=== PATIENT | male | born 1965 | race Caucasian/White ===

== ENCOUNTER 2017-12-27 13:06 | Emergency (ER) | payer MEDICAID, OTHER ==
[~2017-12-27] VITALS: Ht 188 cm; Wt 96.2 kg
[2017-12-27] MEDS ORDERED: fentaNYL INJECTION 100 MCG/2 ML AMP IVP ONE (13:45)
[2017-12-27 13:52] LABS: BILIRUBIN,URINE NEGATIVE (NEGATIVE); CLARITY,URINE CLEAR; COLOR,URINE YELLOW; GLUCOSE, URINE (UA) NEGATIVE (NEGATIVE); KETONES,URINE NEGATIVE (NEGATIVE); LEUKOCYTE ESTERASE ,URINE 1+ (NEGATIVE); NITRITE,URINE NEGATIVE (NEGATIVE); PH,URINE 7 (5-9); PROTEIN,URINE 3+ (NEGATIVE); UROBILINOGEN,URINE NORMAL (NORMAL)
[2017-12-27 13:58] LABS: BACTERIA,URINE TRACE /HPF
[2017-12-27 14:14] LABS: BASOPHILS % (AUTO) 0 % (0-10); EOSINOPHILS # (AUTO) 0.2 10^3/uL (0.0-0.3); EOSINOPHILS % (AUTO) 2 % (0-10); HEMATOCRIT 50 % (40-54); HEMOGLOBIN 17.8 G/DL (13.3-17.7); LYMPHOCYTES # (AUTO) 2.7 X 10^3 (1.0-4.0); LYMPHOCYTES % (AUTO) 26 % (12-44); MEAN CORPUSCULAR HEMOGLOBIN 31 PG (25-34); MEAN CORPUSCULAR HGB CONC 36 G/DL (32-36); MEAN CORPUSCULAR VOLUME 88 FL (80-99); MEAN PLATELET VOLUME 9.2 FL (7.4-10.4); MONOCYTES # (AUTO) 1.2 X 10^3 (0.0-1.0); MONOCYTES % (AUTO) 11 % (0-12); NEUTROPHILS # (AUTO) 6.1 X 10^3 (1.8-7.8); NEUTROPHILS % (AUTO) 60 % (42-75); PLATELET COUNT 318 10^3/uL (130-400); RED BLOOD COUNT 5.69 10^6/uL (4.35-5.85); RED CELL DISTRIBUTION WIDTH 14.7 % (10.0-14.5); WHITE BLOOD COUNT 10.2 10^3/uL (4.3-11.0)
--- NOTE | 2017-12-27 14:15 | Diagnostic Imaging Report ---
PROCEDURE: CT abdomen and pelvis without contrast. TECHNIQUE: Multiple contiguous axial images were obtained through the abdomen and pelvis without the use of intravenous contrast. INDICATION: Right groin pain. There are no prior studies available for comparison. FINDINGS: By history, the patient has a diagnosis of renal cell carcinoma. There are surgical clips in the right renal fossa. There is no sign of a mass in this area to suggest recurrent neoplasm. The appendix was visualized and is not abnormally thickened. There is no sign of acute appendicitis. There are a few diverticula in the sigmoid colon but there is no evidence for acute diverticulitis. The mesenteric fat in the pelvis on the right is somewhat asymmetrical. There is no clear evidence for a lipoma in this area but that possibility should be considered. There is no irregular stranding within the fat to suggest a liposarcoma. The urinary bladder seems slightly shifted to the left. The urinary bladder is otherwise unremarkable. There do appear to be surgical sutures along the posterior aspect of the left kidney. This may be related to a prior partial resection of the left kidney. Correlation with the patient's surgical history would be recommended. There is no evidence for obstruction of left collecting system and there is no sign of a mass arising from the left kidney. The adrenals, the liver, the spleen, the pancreas, the gallbladder, the aorta and inferior vena cava show no sign acute abnormality. The stomach is partially filled with fluid and consequently difficult to assess. There may be a small hiatal hernia. The lung bases are clear. The bone windows show no sign acute of an bony abnormality. There is a mild compression deformity of the superior endplate of L1. This appears to be long-standing in nature. There has been a prior laminectomy from L2-L3 through L5-S1. IMPRESSION: 1. There are postsurgical changes consistent with prior right nephrectomy. There is no sign of a mass in this area to suggest recurrent neoplasm. 2. There is no acute abnormality of the abdomen or pelvis identified. In particular, there is no sign of acute appendicitis or diverticulitis. 3. The asymmetric appearance of the mesenteric fat in the right pelvis is of uncertain etiology. Considerations as above. 4. These results were discussed with Dr. Yun. Dictated by: Dictated on workstation # [id number]
[2017-12-27 14:33] LABS: ALANINE AMINOTRANSFERASE 67 U/L (0-55); ALBUMIN 4.1 GM/DL (3.2-4.5); ALKALINE PHOSPHATASE 79 U/L (40-136); BILIRUBIN,TOTAL 0.5 MG/DL (0.1-1.0); BUN/CREATININE RATIO 9; CALCIUM 9.7 MG/DL (8.5-10.1); CARBON DIOXIDE 20 MMOL/L (21-32); CHLORIDE 102 MMOL/L (98-107); CREATININE SERUM 1.03 MG/DL (0.60-1.30); GFR ESTIMATED > 60; GLUCOSE 114 MG/DL (70-105); POTASSIUM 4.3 MMOL/L (3.6-5.0); SODIUM 134 MMOL/L (135-145); TOTAL PROTEIN 8.5 GM/DL (6.4-8.2)
[2017-12-27] MEDS ORDERED: HYDR-3812 PO (15:01)
[2017-12-27] MEDS ORDERED: ACYC800T PO (15:01)
--- NOTE | 2017-12-27 15:01 | ED Abdominal Pain ---
General Chief Complaint: -Male Stated Complaint: SWELLING IN GROIN Nursing Triage Note: TO ROOM C/O LOW ABD PAIN AND SWELLING FOR 2 DAYS TOOK FRIENDS PERCOET THAT DID NOT HELP. Sepsis Screen: No Definite Risk Source of Information: Patient Exam Limitations: No Limitations History of Present Illness Date Seen by Provider: Dec 27, 2017 Time Seen by Provider: 13:18 Initial Comments This 52-year-old gentleman presents to the emergency room with complaints of pain in the right groin/inguinal area for the past 2 days. The pain has been intensifying. He describes a bulge in that area. He denies any urinary changes , constipation, diarrhea, fever, nausea, or vomiting. Last bowel movement was this morning and was normal. The pain is described as a burning and tingling sensation. He appears rather uncomfortable in the room. He has a history of a renal cancer and had a right nephrectomy and orchiectomy. Allergies and Home Medications Allergies Coded Allergies: Penicillins (Verified Allergy, Unknown, 12/27/17) Sulfa (Sulfonamide Antibiotics) (Verified Allergy, Unknown, 12/27/17) codeine (Verified Allergy, Unknown, 12/27/17) ibuprofen (Verified Allergy, Unknown, 12/27/17) Home Medications Acyclovir 800 Mg Tablet, 800 MG PO UD Prescribed by: FLORENCIO LLOYD on 12/27/17 1501 Hydrocodone/Acetaminophen 1 Each Tablet, 1 EACH PO Q4H PRN for PAIN-MODERATE TO SEVERE Prescribed by: FLORENCIO LLOYD on 12/27/17 1501 Patient Home Medication List Home Medication List Reviewed: Yes Review of Systems Constitutional: no symptoms reported EENTM: No Symptoms Reported Respiratory: No Symptoms Reported Cardiovascular: No Symptoms Reported Gastrointestinal: See HPI Genitourinary: No Symptoms Reported Musculoskeletal: no symptoms reported Skin: see HPI Psychiatric/Neurological: No Symptoms Reported Endocrine: No Symptoms Reported Hematologic/Lymphatic: No Symptoms Reported Past Rqjdvcu-Rxqxvw-Hmguli Hx Patient Social History Alcohol Use: Denies Use Recreational Drug Use: No Smoking Status: Current Everyday Smoker Recent Foreign Travel: No Contact w/Someone Who Travel: No Recent Infectious Disease Expo: No Past Medical History Surgeries: Yes (Right orchiectomy) Nephrectomy (Right) Respiratory: No Cardiac: No Neurological: No Reproductive Disorders: Yes (Right orchiectomy) Genitourinary: No Gastrointestinal: No Musculoskeletal: No Endocrine: No HEENT: No Cancer: Yes Kidney Did You Recieve Any Treatments: Yes (Right nephrectomy and right orchiectomy) Psychosocial: No Integumentary: No Blood Disorders: No Physical Exam Vital Signs Vital Signs - First Documented 12/27/17 12/27/17 13:15 15:07 Temp 96.6 Pulse 112 Resp 18 B/P (MAP) 149/118 (128) Pulse Ox 96 O2 Delivery Room Air Capillary Refill : Less Than 3 Seconds General Appearance: WD/WN, mild distress HEENT: normal ENT inspection Neck: normal inspection Respiratory: lungs clear, normal breath sounds, no respiratory distress, no accessory muscle use Cardiovascular: regular rate, rhythm, no edema, no murmur Gastrointestinal: normal bowel sounds, non tender, soft, No distended, No hernia, No mass Genital/Rectal: other (I orchiectomy. No scrotal or penile tenderness. Right inguinal area is tender to the touch, even with light touch to the skin. There is no bulge with Valsalva to suggest hernia.) Extremities: normal inspection, no pedal edema Neurologic/Psychiatric: [employer] II-XII nml as tested, no motor/sensory deficits, alert, normal mood/affect, oriented x 3 Skin: normal color, warm/dry, other (Skin tender to light touch in the right inguinal area) Progress/Results/Core Measures Lab Results Laboratory Tests Test 12/27/17 13:47 12/27/17 14:05 Range/Units Urine Color YELLOW Urine Clarity CLEAR Urine pH 7 5-9 Urine Specific [place] 1.010 L 1.016-1.022 Urine Protein 3+ H NEGATIVE Urine Glucose (UA) NEGATIVE NEGATIVE Urine Ketones NEGATIVE NEGATIVE Urine Nitrite NEGATIVE NEGATIVE Urine Bilirubin NEGATIVE NEGATIVE Urine Urobilinogen NORMAL NORMAL MG/DL Urine Leukocyte Esterase 1+ H NEGATIVE Urine RBC (Auto) NEGATIVE NEGATIVE Urine RBC NONE /HPF Urine WBC NONE /HPF Urine Crystals NONE /LPF Urine Bacteria TRACE /HPF Urine Casts NONE /LPF Urine Mucus NEGATIVE /LPF Urine Culture Indicated NO White Blood Count 10.2 4.3-11.0 10^3/uL Red Blood Count 5.69 4.35-5.85 10^6/uL Hemoglobin 17.8 H 13.3-17.7 G/DL Hematocrit 50 40-54 % Mean Corpuscular Volume 88 80-99 FL Mean Corpuscular Hemoglobin 31 25-34 PG Mean Corpuscular Hemoglobin Concent 36 32-36 G/DL Red Cell Distribution Width 14.7 H 10.0-14.5 % Platelet Count 318 130-400 10^3/uL Mean Platelet Volume 9.2 7.4-10.4 FL Neutrophils (%) (Auto) 60 42-75 % Lymphocytes (%) (Auto) 26 12-44 % Monocytes (%) (Auto) 11 0-12 % Eosinophils (%) (Auto) 2 0-10 % Basophils (%) (Auto) 0 0-10 % Neutrophils # (Auto) 6.1 1.8-7.8 X 10^3 Lymphocytes # (Auto) 2.7 1.0-4.0 X 10^3 Monocytes # (Auto) 1.2 H 0.0-1.0 X 10^3 Eosinophils # (Auto) 0.2 0.0-0.3 10^3/uL Basophils # (Auto) 0.0 0.0-0.1 10^3/uL Sodium Level 134 L 135-145 MMOL/L Potassium Level 4.3 3.6-5.0 MMOL/L Chloride Level 102 98-107 MMOL/L Carbon Dioxide Level 20 L 21-32 MMOL/L Anion Gap 12 5-14 MMOL/L Blood Urea Nitrogen 9 7-18 MG/DL Creatinine 1.03 0.60-1.30 MG/DL Estimat Glomerular Filtration Rate > 60 BUN/Creatinine Ratio 9 Glucose Level 114 H 70-105 MG/DL Calcium Level 9.7 8.5-10.1 MG/DL Total Bilirubin 0.5 0.1-1.0 MG/DL Aspartate Amino Transf (AST/SGOT) 44 H 5-34 U/L Alanine Aminotransferase (ALT/SGPT) 67 H 0-55 U/L Alkaline Phosphatase 79 40-136 U/L Total Protein 8.5 H 6.4-8.2 GM/DL Albumin 4.1 3.2-4.5 GM/DL My Orders Orders - FLORENCIO GUTIERREZ MD Cbc With Automated Diff (12/27/17 13:43) Comprehensive Metabolic Panel (12/27/17 13:43) Ua Culture If Indicated (12/27/17 13:43) Saline Lock/Iv-Start (12/27/17 13:43) Ct Abdomen/Pelvis Wo (12/27/17 13:43) Fentanyl Injection (Sublimaze Injection (12/27/17 13:45) Medications Given in ED Vital Signs/I&O 12/27/17 12/27/17 13:15 15:07 Temp 96.6 Pulse 112 100 Resp 18 18 B/P (MAP) 149/118 (128) 156/115 Pulse Ox 96 O2 Delivery Room Air Blood Pressure Mean: 128 Progress Note : Progress Note No evidence of hernia was found on exam. CT was performed due to history of cancer. No acute abnormalities were identified. Labs gave no indication as to cause of pain. I suspect patient may be developing early shingles as his skin is tender to light touch in the area of pain. Patient was empirically treated with acyclovir. Departure Impression Primary Impression: Right inguinal pain Additional Impression: History of renal cell cancer Disposition: HOME, SELF-CARE Condition: Improved Departure-Patient Inst. Decision time for Depature: 14:58 Referrals: NO,LOCAL PHYSICIAN (PCP/Family) Primary Care Physician Patient Instructions: Shingles Add. Discharge Instructions: The exact cause of your pain is uncertain at this time but it could be related to shingles. Take the medication as prescribed. Follow-up with a primary care provider as soon as possible. Return to emergency room if you develop worsening or new symptoms such as fever , vomiting, diarrhea, rectal bleeding, uncontrolled pain, etc. All discharge instructions reviewed with patient and/or family. Voiced understanding. Scripts Hydrocodone/Acetaminophen (Hydrocodone-Acetamin 5-325 mg) 1 Each Tablet 1 EACH PO Q4H Y for PAIN-MODERATE TO SEVERE, #14 TAB Prov: FLORENCIO GUTIERREZ MD 12/27/17 Acyclovir (Acyclovir) 800 Mg Tablet 800 MG PO UD, #35 TAB Prov: FLORENCIO GUTIERREZ MD 12/27/17 FLORENCIO GUTIERREZ MD Dec 27, 2017 15:01
[2017-12-27 15:07] VITALS: BP 156/115
== END 2017-12-27 15:07 | disposition home or self-care (01) ==
LOC: EDUNIT# 13:06 → ER 13:09
DX: R10.31 Right lower quadrant pain (principal); Z90.5 Acquired absence of kidney; Z88.0 Allergy status to penicillin; Z88.2 Allergy status to sulfonamides; Z88.5 Allergy status to narcotic agent; Z88.6 Allergy status to analgesic agent
CPT/HCPCS: 36415; 74176; 80053; 81000; 85025; 96374

== ENCOUNTER 2018-12-13 22:33 | Emergency (ER) | payer MEDICAID ==
[~2018-12-13] VITALS: Ht 188 cm; Wt 96.2 kg
[~2018-12-13 22:33] MED LIST: ACYC800T PO; HYDR-3812 PO
[2018-12-13] MEDS ORDERED: LACTATED RINGERS 1,000 ML IV ONE ×2 (22:37→23:38)
[2018-12-13 22:58] LABS: BASOPHILS % (AUTO) 0 % (0-10); EOSINOPHILS # (AUTO) 0.1 10^3/uL (0.0-0.3); EOSINOPHILS % (AUTO) 0 % (0-10); HEMATOCRIT 44 % (40-54); HEMOGLOBIN 15.2 G/DL (13.3-17.7); LYMPHOCYTES # (AUTO) 1.7 X 10^3 (1.0-4.0); LYMPHOCYTES % (AUTO) 11 % (12-44); MEAN CORPUSCULAR HEMOGLOBIN 32 PG (25-34); MEAN CORPUSCULAR HGB CONC 35 G/DL (32-36); MEAN CORPUSCULAR VOLUME 91 FL (80-99); MEAN PLATELET VOLUME 9.3 FL (7.4-10.4); MONOCYTES # (AUTO) 1.6 X 10^3 (0.0-1.0); MONOCYTES % (AUTO) 10 % (0-12); NEUTROPHILS # (AUTO) 12.2 X 10^3 (1.8-7.8); NEUTROPHILS % (AUTO) 79 % (42-75); PLATELET COUNT 376 10^3/uL (130-400); RED CELL DISTRIBUTION WIDTH 13.4 % (10.0-14.5); WHITE BLOOD COUNT 15.5 10^3/uL (4.3-11.0)
[2018-12-13] MEDS ORDERED: diphenhydrAMINE 50 MG/ML INJ (BENADRYL) IVP ONE ×2 (23:00→23:30)
[2018-12-13] MEDS ORDERED: LORazepam INJ 2 MG/ML (ATIVAN) VIAL IVP ONE ×2 (23:00→23:30)
[2018-12-13 23:19] LABS: ALANINE AMINOTRANSFERASE 28 U/L (0-55); ALBUMIN 4.2 GM/DL (3.2-4.5); ALKALINE PHOSPHATASE 61 U/L (40-136); BILIRUBIN,TOTAL 0.9 MG/DL (0.1-1.0); BUN/CREATININE RATIO 22; CARBON DIOXIDE 17 MMOL/L (21-32); CHLORIDE 104 MMOL/L (98-107); CREATININE SERUM 1.34 MG/DL (0.60-1.30); GFR ESTIMATED 56; GLUCOSE 84 MG/DL (70-105); POTASSIUM 4.6 MMOL/L (3.6-5.0); SODIUM 140 MMOL/L (135-145); TOTAL PROTEIN 8.2 GM/DL (6.4-8.2)
[2018-12-13 23:23] LABS: BAND NEUTROPHILS 0 %; LYMPHOCYTES % (MANUAL) 12 %; NEUTROPHILS % (MANUAL) 79 %
[2018-12-13 23:24] LABS: EOSINOPHILS % (MANUAL) 1 %; MONOCYTES % (MANUAL) 8 %; RBC MORPH NORMAL
--- NOTE | 2018-12-13 23:30 | NUR ---
Pt continues to be unable to lay still in bed. Pt unable to keep arms and legs still. Pt attempting to use pulse oximeter probe as cigarette and asking "are these menthols?". Pt continues to holler out and mumble random incoherent statements.
--- NOTE | 2018-12-14 00:06 | NUR ---
Pt having outbursts and cussing at staff. Pt still unable to lay still to capture EKG. Dr Humphrey pleitez.
[2018-12-14] MEDS ORDERED: LACTATED RINGERS 1,000 ML IV ONE (00:26)
--- NOTE | 2018-12-14 00:44 | NUR ---
Pt resting quietly in bed at this time. VSS. Will continue to monitor pt.
--- NOTE | 2018-12-14 01:12 | ED Psychosocial ---
General Chief Complaint: Substance Abuse Stated Complaint: METH ABUSE Nursing Triage Note: PT REPORTS BEING KICKED OUT OF THE [employer] 2 WEEKS AGO. PT REPORTS TURNING TO DRUGS AFTER THIS. PT REPORTS SMOKING 1/2 AN "8 BALL" OF METH LAST NIGHT. PT ALSO REPORTS SHOOTING UP WITH METH 3 TIMES TO HIS RIGHT ARM. PT ALSO REPORTS MAIJUANA, COCAINE, AND HEROINE USE. PT REPORTS SEEING THINGS THAT HE KNOW IS NOT THERE. POLICE WERE CALLED FOR THIS [place] AND EMS PICKED HIM UP AROUND AND MIR WALKING THE STREETS. PT ALSO REPORTS TAKING VALIUM AND XANAX PILLS. Source: patient, EMS History of Present Illness Date Seen by Provider: Dec 13, 2018 Allergies and Home Medications Allergies Coded Allergies: Penicillins (Verified Allergy, Unknown, 12/13/18) Sulfa (Sulfonamide Antibiotics) (Verified Allergy, Unknown, 12/13/18) codeine (Verified Allergy, Unknown, 12/13/18) ibuprofen (Verified Allergy, Unknown, 12/13/18) Home Medications Acyclovir 800 Mg Tablet, 800 MG PO UD Prescribed by: FLORENCIO LLOYD on 12/27/17 1501 Hydrocodone/Acetaminophen 1 Each Tablet, 1 EACH PO Q4H PRN for PAIN-MODERATE TO SEVERE Prescribed by: FLORENCIO LLOYD on 12/27/17 1501 Past Qjjawko-Dpmhfp-Nnbyno Hx Patient Social History Alcohol Use: Denies Use Recreational Drug Use: Yes Drug of Choice: METH, COCAINE, MARIJUANA, HEROINE, PCP, LSD Smoking Status: Current Everyday Smoker Type Used: Cigarettes Recent Foreign Travel: No Contact w/Someone Who Travel: No Recent Infectious Disease Expo: No Recent Hopitalizations: No Seasonal Allergies Seasonal Allergies: No Past Medical History Surgeries: Yes (Right orchiectomy) Nephrectomy Respiratory: No Cardiac: No Neurological: No Reproductive Disorders: Yes (Right orchiectomy) Genitourinary: No Gastrointestinal: No Musculoskeletal: No Endocrine: No HEENT: No Cancer: Yes Kidney Did You Recieve Any Treatments: Yes Psychosocial: No Integumentary: No Blood Disorders: No Physical Exam Vital Signs - First Documented 12/13/18 22:35 Temp 95.8 Pulse 119 Resp 42 B/P (MAP) 127/69 (88) Pulse Ox 96 Capillary Refill : Less Than 3 Seconds Height, Weight, BMI Height: 6'2.00" Weight: 212lbs. oz. 96.540237tv; BMI Method:Stated Progress/Results/Core Measures Results/Orders Lab Results Laboratory Tests Test 12/13/18 22:52 12/14/18 04:44 Range/Units White Blood Count 15.5 H 4.3-11.0 10^3/uL Red Blood Count 4.83 4.35-5.85 10^6/uL Hemoglobin 15.2 13.3-17.7 G/DL Hematocrit 44 40-54 % Mean Corpuscular Volume 91 80-99 FL Mean Corpuscular Hemoglobin 32 25-34 PG Mean Corpuscular Hemoglobin Concent 35 32-36 G/DL Red Cell Distribution Width 13.4 10.0-14.5 % Platelet Count 376 130-400 10^3/uL Mean Platelet Volume 9.3 7.4-10.4 FL Neutrophils (%) (Auto) 79 H 42-75 % Lymphocytes (%) (Auto) 11 L 12-44 % Monocytes (%) (Auto) 10 0-12 % Eosinophils (%) (Auto) 0 0-10 % Basophils (%) (Auto) 0 0-10 % Neutrophils # (Auto) 12.2 H 1.8-7.8 X 10^3 Lymphocytes # (Auto) 1.7 1.0-4.0 X 10^3 Monocytes # (Auto) 1.6 H 0.0-1.0 X 10^3 Eosinophils # (Auto) 0.1 0.0-0.3 10^3/uL Basophils # (Auto) 0.0 0.0-0.1 10^3/uL Neutrophils % (Manual) 79 % Lymphocytes % (Manual) 12 % Monocytes % (Manual) 8 % Eosinophils % (Manual) 1 % Band Neutrophils 0 % Blood Morphology Comment NORMAL Sodium Level 140 135-145 MMOL/L Potassium Level 4.6 3.6-5.0 MMOL/L Chloride Level 104 98-107 MMOL/L Carbon Dioxide Level 17 L 21-32 MMOL/L Anion Gap 19 H 5-14 MMOL/L Blood Urea Nitrogen 30 H 7-18 MG/DL Creatinine 1.34 H 0.60-1.30 MG/DL Estimat Glomerular Filtration Rate 56 BUN/Creatinine Ratio 22 Glucose Level 84 70-105 MG/DL Calcium Level 10.0 8.5-10.1 MG/DL Corrected Calcium 9.8 8.5-10.1 MG/DL Magnesium Level 2.0 1.8-2.4 MG/DL Total Bilirubin 0.9 0.1-1.0 MG/DL Aspartate Amino Transf (AST/SGOT) 37 H 5-34 U/L Alanine Aminotransferase (ALT/SGPT) 28 0-55 U/L Alkaline Phosphatase 61 40-136 U/L Total Protein 8.2 6.4-8.2 GM/DL Albumin 4.2 3.2-4.5 GM/DL Serum Alcohol < 10 <10 MG/DL My Orders Orders - VICENTA LORA DO Alcohol (12/13/18 22:37) Cbc With Automated Diff (12/13/18 22:37) Comprehensive Metabolic Panel (12/13/18 22:37) Drug Screen Stat (Urine) (12/13/18 22:37) Magnesium (12/13/18 22:37) Ua Culture If Indicated (12/13/18 22:37) Saline Lock/Iv-Start (12/13/18 22:37) Lactated Ringers (Lr 1000 Ml Iv Solution (12/13/18 22:37) Saline Lock/Iv-Start (12/13/18 22:37) Ekg Tracing (12/13/18 22:37) Monitor-Rhythm Ecg Trace Only (12/13/18 22:37) Diphenhydramine Injection (Benadryl Inje (12/13/18 23:00) Lorazepam Injection (Ativan Injection) (12/13/18 23:00) Manual Differential (12/13/18 22:52) Diphenhydramine Injection (Benadryl Inje (12/13/18 23:30) Lorazepam Injection (Ativan Injection) (12/13/18 23:30) Saline Lock/Iv-Start (12/13/18 23:38) Lactated Ringers (Lr 1000 Ml Iv Solution (12/13/18 23:38) Saline Lock/Iv-Start (12/14/18 00:26) Lactated Ringers (Lr 1000 Ml Iv Solution (12/14/18 00:26) Straight Cath For Spec.-Adult (12/14/18 03:22) Saline Lock/Iv-Start (12/14/18 04:37) Ns Iv 1000 Ml (Sodium Chloride 0.9%) (12/14/18 04:37) Medications Given in ED Current Medications Medications Dose Ordered Sig/Tong Route Start Time Stop Time Status Last Admin Dose Admin Diphenhydramine HCl 50 mg ONCE ONCE IVP 12/13/18 23:00 12/13/18 23:01 DC 12/13/18 22:57 50 MG Diphenhydramine HCl 50 mg ONCE ONCE IVP 12/13/18 23:30 12/13/18 23:31 DC 12/13/18 23:36 50 MG Lactated Ringer's 1,000 ml @ 0 mls/hr Q0M ONCE IV 12/13/18 22:37 12/13/18 22:40 DC 12/13/18 22:56 999 MLS/HR Lactated Ringer's 1,000 ml @ 0 mls/hr Q0M ONCE IV 12/13/18 23:38 12/13/18 23:39 DC 12/14/18 00:03 999 MLS/HR Lactated Ringer's 1,000 ml @ 0 mls/hr Q0M ONCE IV 12/14/18 00:26 12/14/18 00:27 DC 12/14/18 01:48 999 MLS/HR Lorazepam 2 mg ONCE ONCE IVP 12/13/18 23:00 12/13/18 23:01 DC 12/13/18 22:56 2 MG Lorazepam 2 mg ONCE ONCE IVP 12/13/18 23:30 12/13/18 23:31 DC 12/13/18 23:36 2 MG Vital Signs/I&O 12/13/18 22:35 Temp 95.8 Pulse 119 Resp 42 B/P (MAP) 127/69 (88) Pulse Ox 96 Blood Pressure Mean: 88 Progress Progress Note : Progress Note PT GIVEN BENADRYL AND ATIVAN AND EVENTUALLY WAS ABLE TO SLEEP 0045--SLEEPING SOUNDLY, EASILY AWAKENED. O2 SATS NORMAL. Departure Impression Primary Impression: Illicit drug use Additional Impressions: Methamphetamine use Dehydration Disposition: HOME, SELF-CARE Condition: Improved Departure-Patient Inst. Referrals: NO,LOCAL PHYSICIAN (PCP/Family) Primary Care Physician Patient Instructions: ALCOHOL AND SUBSTANCE ABUSE, Dehydration, Adult (DC), Drug Abuse and Drug Addiction (DC), Methamphetamine Add. Discharge Instructions: LOTS OF FLUIDS--EQUAL AMOUNTS OF WATER AND GATORADE--DRINK ENOUGH SO YOU ARE URINATING EVERY 2-3 HOURS WHILE AWAKE FOLLOW UP WITH DR. OF CHOICE NEEDED All discharge instructions reviewed with patient and/or family. Voiced understanding. VICENTA LORA DO Dec 14, 2018 01:12
--- NOTE | 2018-12-14 01:30 | NUR ---
Pt continues to rest quietly in bed at this time
--- NOTE | 2018-12-14 03:30 | NUR ---
Urine requested from pt, pt attempting to use urinal at this time. Pt continues to fall asleep while attempting to use urinal.
[2018-12-14] MEDS ORDERED: NS IV 1000 ML 1,000 ML IV ONE (04:37)
--- NOTE | 2018-12-14 04:45 | NUR ---
Pt up to side of bed using urinal. Pt peeing on floor and having verbal outbursts at staff. Dr Yin at bedside.
[2018-12-14 04:57] LABS: BILIRUBIN,URINE NEGATIVE (NEGATIVE); CLARITY,URINE CLEAR; COLOR,URINE YELLOW; GLUCOSE, URINE (UA) NEGATIVE (NEGATIVE); KETONES,URINE 4+ (NEGATIVE); LEUKOCYTE ESTERASE ,URINE 2+ (NEGATIVE); NITRITE,URINE POSITIVE (NEGATIVE); PH,URINE 5 (5-9); PROTEIN,URINE 2+ (NEGATIVE); UROBILINOGEN,URINE NORMAL (NORMAL)
[2018-12-14 04:58] VITALS: BP 116/94
[2018-12-14 05:05] LABS: BACTERIA,URINE LARGE /HPF
[2018-12-14 05:09] LABS: BENZODIAZEPINES SCREEN URINE POSITIVE (NEGATIVE)
[2018-12-14 05:10] LABS: AMPHETAMINE SCREEN, URINE POSITIVE (NEGATIVE); BARBITURATE SCREEN URINE NEGATIVE (NEGATIVE); CANNABINOID SCREEN, URINE NEGATIVE (NEGATIVE); COCAINE SCREEN URINE NEGATIVE (NEGATIVE); METHADONE STAT NEGATIVE (NEGATIVE); METHAMPHETAMINE SCREEN URINE S POSITIVE (NEGATIVE); OPIATE SCREEN URINE NEGATIVE (NEGATIVE); OXYCODONE STAT NEGATIVE (NEGATIVE); PROPOXYPHENE STAT NEGATIVE (NEGATIVE); TRICYCLIC ANTIDEPRESSANTS SCRE POSITIVE (NEGATIVE)
== END 2018-12-14 04:58 | disposition home or self-care (01) ==
LOC: EDUNIT# 22:33 → ER 22:34
DX: F15.10 Other stimulant abuse, uncomplicated (principal); E86.0 Dehydration; F14.10 Cocaine abuse, uncomplicated; F12.10 Cannabis abuse, uncomplicated; F11.10 Opioid abuse, uncomplicated; F17.210 Nicotine dependence, cigarettes, uncomplicated; Z88.0 Allergy status to penicillin; Z90.5 Acquired absence of kidney; Z90.79 Acquired absence of other genital organ(s); Z85.528 Personal history of other malignant neoplasm of kidney; Z88.2 Allergy status to sulfonamides; Z88.5 Allergy status to narcotic agent; Z88.6 Allergy status to analgesic agent
CPT/HCPCS: 36415; 80053; 80306; 80320; 81000; 83735; 85007; 85027; 87077; 87088; 87186; 93005; 93041; 96361; 96374; 96375; 96376